=== PATIENT | male | born 1960 | race Caucasian/White ===

== ENCOUNTER 2021-09-10 15:07 | Emergency (ER) | payer MEDICARE ==
[~2021-09-10] VITALS: Ht 195.6 cm; Wt 104.3 kg
[~2021-09-10 15:07] MED LIST: ALPRAZOLAM1 MG PO; AMBIEN10 MG PO; ASPIRIN EC81 MG PO; ATORVASTATIN CA20 MG PO; GABAPENTIN800 MG PO; LIDO KING1 EACH TP; LISINOPRIL5 MG PO; LOPRESSOR 25 MG25 MG PO; METHADONE HCL T10 MG PO; NITROSTAT0.4 MG SL; OXYCODONE HCL10 MG PO; PROTONIX20 MG PO; XANAX1 MG PO
[2021-09-10] MEDS ORDERED: ONDANSETRON ODT4 MG SL (16:19)
[2021-09-10] MEDS ORDERED: DIFLUCAN150 MG PO (16:19)
== END 2021-09-10 18:20 | disposition home or self-care (01) ==
LOC: ER1 15:07
DX: U07.1 COVID-19 (principal); Z23 Encounter for immunization; Z95.0 Presence of cardiac pacemaker
CPT/HCPCS: 99283; M0243

== ENCOUNTER 2021-10-27 16:38 | Emergency (ER) | payer MEDICARE ==
[~2021-10-27 16:38] MED LIST changes: +DIFLUCAN150 MG PO; +ONDANSETRON ODT4 MG SL
== END 2021-10-27 19:08 | disposition home or self-care (01) ==
LOC: ER1 16:38
DX: I86.1 Scrotal varices (principal)
CPT/HCPCS: 76870; 99284